=== PATIENT | female | born 1950 | race Caucasian/White ===

== ENCOUNTER 2019-02-15 08:54 | Inpatient (IN) | payer MEDICARE, MEDICAID ==
[2019-02-12 15:43] VITALS: BMI 33.5
[2019-02-15 10:18] LABS: #Basophils 0.1 thou/uL (0.0-0.2); #Eosinphils 0.2 thou/uL (0.0-0.7); #Lymphocytes 2.2 thou/uL (1.20-3.40); #Monocytes 0.5 thou/uL (0.11-0.59); #Neutrophils 3.5 thou/uL (1.40-6.50); %Basophils 0.8 % (0.0-1.0); %Eosinophils 3.3 % (0.0-10.0); %Lymphocytes 34.3 % (21.0-51.0); %Monocytes 7.9 % (0.0-10.0); %Neutrophils 53.8 % (42.0-75.0); Hemoglobin 12.8 g/dL (12.0-16.0); Mean Corpuscular HGB CONC 34.7 g/dL (32.0-36.0); Mean Corpuscular Hemoglobin 30.1 pg (27.0-31.0); Mean Corpuscular Volume 86.7 fL (78.0-98.0); Platelet Count 263 thou/uL (130-400); RBC Distribution Width 12.8 % (11.5-14.5); Red Blood Cell (RBC) Count 4.25 mill/uL (4.20-5.40); White Blood Cell (WBC) Count 6.4 thou/uL (4.8-10.8)
[2019-02-15 10:42] LABS: Anion Gap 14 mmol/L (10-20); BUN (Urea Nitrogen) 25 mg/dL (9.8-20.1); Calc. Creatinine Clearance 72 mL/min (70-130); Calcium 8.7 mg/dL (7.8-10.44); Carbon Dioxide 30 mmol/L (23-31); Chloride 100 mmol/L (98-107); Estimated GFR-MDRD 52; Glucose 207 mg/dL (80-115); Potassium 3.8 mmol/L (3.5-5.1); Sodium 140 mmol/L (136-145)
[2019-02-15] MEDS ORDERED: Sodium Chloride 0.9% 10 ML ONE (10:45)
[2019-02-15] MEDS ORDERED: Lidocaine 1% PF 5 ML VIAL ONE (12:46)
[2019-02-15] MEDS ORDERED: Rocuronium Bromide 10 MG/ML (10ML VIAL) ONE (12:46)
[2019-02-15] MEDS ORDERED: Dexamethasone 20 MG/5 ML VIAL ONE (12:46)
[2019-02-15] MEDS ORDERED: Ondansetron PF 4 MG/2 ML Vial ONE (12:46)
[2019-02-15] MEDS ORDERED: PROPOFOL 200 MG/20 ML VIAL ONE (12:46)
[2019-02-15] MEDS ORDERED: ePHEDrine 50 MG/ML VIAL ONE (12:46)
[2019-02-15] MEDS ORDERED: PHENYLEPHRINE-NS 100 MCG/ML 10 ML SYRINGE ONE (12:46)
[2019-02-15] MEDS ORDERED: Glycopyrrolate 0.2 MG/ML 5 ML SYRINGE ONE (12:46)
[2019-02-15] MEDS ORDERED: Fentanyl 100 MCG/2 ML VIAL ONE ×3 (13:16→15:45)
[2019-02-15] MEDS ORDERED: SUGAMMADEX SODIUM 200 MG/2 ML VIAL ONE ×2 (14:50→14:55)
[2019-02-15] MEDS ORDERED: HYDROmorphone 0.5 MG/0.5 ML SYRINGE ONE ×2 (15:50→16:08)
[2019-02-15] MEDS ORDERED: HYDROcodone/Acetaminophen 10/325 mg Tablet PO PRN (16:04)
[2019-02-15] MEDS ORDERED: Bisacodyl 10 MG SUPP PR PRN (16:04)
[2019-02-15] MEDS ORDERED: Promethazine HCl 12.5 MG SUPP PR PRN (16:04)
[2019-02-15] MEDS ORDERED: Milk Of Magnesia 30 ML UDCUP PO PRN (16:04)
[2019-02-15] MEDS ORDERED: tiZANidine HCl 4 MG TAB PO PRN (16:04)
[2019-02-15] MEDS ORDERED: Promethazine 25 MG TAB PO PRN (16:04)
[2019-02-15] MEDS ORDERED: Mag-Al 1200 mg/1200 mg/30 ML UDCUP PO PRN (16:04)
[2019-02-15] MEDS ORDERED: traMADol HCl 50 MG TAB PO PRN ×2 (16:04)
[2019-02-15] MEDS ORDERED: diphenhydrAMINE 50 MG/ML VIAL IVP PRN (16:04)
[2019-02-15] MEDS ORDERED: Ondansetron PF 4 MG/2 ML Vial IM PRN (16:06)
[2019-02-15] MEDS ORDERED: Meclizine HCl 25 MG TAB PO PRN (17:00)
[2019-02-15] MEDS ORDERED: busPIRone HCl 5 MG TAB PO PRN (17:02)
[2019-02-15] MEDS ORDERED: Morphine 2 MG/ML SYRINGE SLOW IVP PRN ×2 (19:03→19:16)
[2019-02-15] MEDS ORDERED: Insulin Regular 300 UNITS/3 ML VIAL SC SCH ×2 (19:15→19:45)
[2019-02-15] MEDS: Sodium Chloride 0.9% 1,000 ML IV SCH (19:35)
[2019-02-15] MEDS: metFORMIN 500 MG TAB PO SCH (20:21)
[2019-02-15] MEDS: Pregabalin 50 MG CAP PO SCH (20:22)
[2019-02-15] MEDS: Amlodipine 10 MG TAB PO SCH (20:23)
[2019-02-15] MEDS: HYDROcodone/Acetaminophen 10/325 mg Tablet PO PRN (20:24)
[2019-02-15] MEDS: Atorvastatin Calcium 40 MG TAB PO SCH (20:25)
[2019-02-15] MEDS: Insulin Glargine 33 UNITS in Pre-Filled Syringe 1 EACH SC SCH (20:27)
[2019-02-15] MEDS: DULoxetine 30 MG CAP PO SCH (20:27)
[2019-02-15] MEDS: diphenhydrAMINE 25 MG CAP PO PRN (20:33)
[2019-02-15] MEDS: CEFAZOLIN 2 GM in Premix Bag 1 BAG IVPB SCH (21:44)
[2019-02-15] MEDS: oxyCODONE/Acetaminophen 5 mg/325 mg Tablet PO PRN (23:51)
[2019-02-16] MEDS: Sodium Chloride 0.9% 1,000 ML IV SCH ×2 (05:25→19:27)
[2019-02-16] MEDS: HYDROcodone/Acetaminophen 10/325 mg Tablet PO PRN ×2 (05:25→11:46)
[2019-02-16] MEDS: CEFAZOLIN 2 GM in Premix Bag 1 BAG IVPB SCH (05:26)
--- NOTE | 2019-02-16 06:18 | PRG ---
DATE OF SERVICE: 02/16/2019 The patient is a 68-year-old female, who was seen by us for progressive back and leg pain and found to have L4-L5 degenerative changes and spondylolisthesis and underwent L4-L5 decompression and fusion on 02/15/2019. Following the surgery, she was transitioned to the Med/Surg floor, where her pain has been well-controlled with p.o. medications, she has been tolerating a regular diet. She has had some increased urinary retention, but has not tried to get up out of the bed to use the bathroom. She also had a JEREMY drain placed and its output has been trending down with only 35 mL out. NAD, VSS FAROM all extremities. No focal motor weakness Incision C/D/I We will get her up on a bedside commode rather than a bed pina, but if still unable to urinate and scans greater than 350, she may require I and O cath. We will plan to remove the JEREMY drain today. Otherwise, we will continue to work on pain control and mobilizing appropriately. I anticipate home in the next few days. Job ID: [id number] [facility]
[2019-02-16] MEDS: oxyCODONE/Acetaminophen 5 mg/325 mg Tablet PO PRN ×2 (06:26→20:12)
[2019-02-16] MEDS: Insulin Regular 300 UNITS/3 ML VIAL SC SCH ×3 (06:28→16:37)
[2019-02-16] MEDS ORDERED: BIOTENE MOUTH SPRAY 44.3 ML MM PRN (06:50)
--- NOTE | 2019-02-16 08:05 | OP ---
DATE OF PROCEDURE: 02/15/2019 CHIP DRIER: Eduardo Weir PA-C. PROCEDURES PERFORMED: Lumbar laminectomy L4-L5, posterolateral arthrodesis, pedicle screw instrumentation, demineralized bone matrix, and local morselized autograft L4-L5. DESCRIPTION OF PROCEDURE: The patient was brought to the operating room and intubated. She was rolled in a prone position on gel-filled chest rolls. The previous incision was reopened and extended, and the L4-L5 levels were exposed. As anticipated, there was evidence of an interlaminar laminectomy at L4-L5. We performed complete L5 and inferior L4 laminectomies, completely decompressed the neural elements. There was extensive scar in the region of the prior laminotomy as well as synovial cyst debris, all of which was debrided. A complete decompression was achieved. Next, pedicle screws were placed on the right at L4 and L5 using lateral fluoroscopic guidance. The aaliyah was secured between the screws, connected by nuts, which were final tightened. The wound was then extensively irrigated. MAC hemostasis was secured. A combination of demineralized bone matrix, local morselized autograft was laid over the lamina and posterolateral surfaces for the purpose of arthrodesis. Vancomycin powder was applied, and the wound was then closed in anatomic layers over drain. Job ID: [id number]
[2019-02-16] MEDS: Cephalexin 250 MG CAP PO SCH ×4 (08:10→19:49)
[2019-02-16] MEDS: diphenhydrAMINE 25 MG CAP PO PRN ×2 (08:11→16:35)
[2019-02-16] MEDS: DULoxetine 30 MG CAP PO SCH ×2 (08:11→19:46)
[2019-02-16] MEDS: Hydrochlorothiazide 25 MG TAB PO SCH ×2 (08:11→08:12)
[2019-02-16] MEDS: metFORMIN 500 MG TAB PO SCH ×2 (08:12→19:47)
[2019-02-16] MEDS: Pregabalin 50 MG CAP PO SCH ×3 (08:12→20:13)
[2019-02-16] MEDS: Fluticasone Propionate Nasal Spray 16 gm Bottle NASAL SCH (08:18)
[2019-02-16] MEDS: Loratadine 10 MG TAB PO SCH (08:19)
[2019-02-16] MEDS ORDERED: FLU VACC TS2019-20(65YR UP)/PF 180 MCG/0.5 ML SYRINGE IM ONE (09:00)
[2019-02-16] MEDS ORDERED: Prevnar 13-Val Conj/PF 0.5 ML SYRINGE IM ONE (09:00)
[2019-02-16] MEDS ORDERED: Dextrose 50% Abboject 50 ML SYRINGE SLOW IVP PRN (18:35)
[2019-02-16] MEDS ORDERED: Dextrose 5% in Water 1,000 ML IV PRN (18:35)
[2019-02-16] MEDS: Amlodipine 10 MG TAB PO SCH (19:46)
[2019-02-16] MEDS: Insulin Glargine 33 UNITS in Pre-Filled Syringe 1 EACH SC SCH (19:49)
[2019-02-16] MEDS: Atorvastatin Calcium 40 MG TAB PO SCH (19:49)
[2019-02-16] MEDS: HumaLOG 300 UNITS/3 ML VIAL SC PRN (19:53)
--- NOTE | 2019-02-17 03:16 | CON ---
DATE OF CONSULTATION: HISTORY OF PRESENT ILLNESS: We were consulted by Dr. Ribeiro after the patient underwent a lumbar laminectomy, L4-L5, posterolateral arthrodesis, pedicle screw instrumentation, demineralized bone matrix, local morselized autograft, L4-L5. The patient reports this is her 2nd laminectomy in the same location. REVIEW OF SYSTEMS: The patient reports postoperative pain, lumbar. Denies chest pain, shortness of breath. All other systems are reviewed and are negative unless mentioned in the HPI. PAST MEDICAL HISTORY: Pertinent for hypertension, hyperlipidemia, anxiety, diabetes type 2, vertigo, chronic back pain, neuropathy. PAST SURGICAL HISTORY: Previous laminectomy, L4-L5, bilateral total knee replacement, partial hysterectomy, left femur fixed after fracture, tonsillectomy. KNOWN ALLERGIES: None. HOME MEDICATIONS: 1. Norvasc 10 mg p.o. q.p.m. 2. Atorvastatin 80 mg p.o. q.p.m. 3. BuSpar 5 mg p.o. b.i.d. p.r.n. 4. Duloxetine 30 mg p.o. b.i.d. 5. Flonase 2 sprays each naris daily. 6. Humulin R 15 units subcu before meals. 7. Hydrochlorothiazide 25 mg p.o. daily. 8. Levemir 50 units subcu q.p.m. 9. Claritin 10 mg p.o. q.a.m. 10. Antivert 25 mg p.o. daily. 11. Mobic 7.5 mg p.o. b.i.d. 12. Metformin 1000 mg p.o. b.i.d. 13. Oxycodone, Tylenol 1 each p.o. q.6 hours as needed. 14. Protonix 40 mg p.o. daily. 15. Lyrica 200 mg p.o. t.i.d. PHYSICAL EXAMINATION: VITAL SIGNS: Temperature is 97.7, pulse is 60, respirations 16, pO2 saturations are 95% on room air, blood pressure is 133/64. CONSTITUTIONAL: The patient is alert and oriented to person, place, and time. Nontoxic appearing. HEENT: Head is atraumatic and normocephalic. Eyes, eyelids are normal to inspection. Pupils are equally round and reactive to light. ENT, mouth exam is normal. The patient has recently had all of her teeth pulled. Mucous membranes are moist. NECK: Supple. Trachea is midline. RESPIRATORY/CHEST: Breath sounds are clear. Chest expansion is equal. CARDIOVASCULAR: Regular heart rate and rhythm. Heart sounds are normal. ABDOMEN: Female, mild distention, nontender. Bowel sounds are heard. BACK: Normal range of motion. There is a dressing to the lumbar, it is dry and intact. No CVA tenderness. EXTREMITIES: Upper extremities, normal inspection. Motor strength is normal. Sensation is intact. Lower extremities, normal inspection, normal range of motion, sensation is intact. NEURO: The patient is oriented to person, place, and time. Speech is normal. SKIN: Warm, dry, normal in color. PSYCH: Has a normal affect. ASSESSMENT AND PLAN: 1. The patient is currently recovering from a postoperative laminectomy for L4-L5, is undergoing physical therapy and has pain management, is being managed by Dr. Ribeiro. 2. History of diabetes mellitus, before meals and at bedtime Accu-Cheks. Restart the patient's home insulin doses. Add sliding scale as needed for coverage. 3. History of hypertension. We will restart home medications, we will trend. Add p.r.n. medications as indicated. 4. History of anxiety. We will restart home medications. We appreciate the consultation. We will follow the patient with you. Job ID: [id number]
[2019-02-17] MEDS: HYDROcodone/Acetaminophen 10/325 mg Tablet PO PRN ×2 (04:19→09:47)
[2019-02-17] MEDS: Insulin Regular 300 UNITS/3 ML VIAL SC SCH ×3 (06:33→16:49)
[2019-02-17] MEDS: HumaLOG 300 UNITS/3 ML VIAL SC PRN ×3 (06:34→21:32)
--- NOTE | 2019-02-17 07:09 | PRG ---
DATE OF SERVICE: SUBJECTIVE: Patient is postoperative day #2, status post L4-L5 decompression and fusion. Her JEREMY was removed on postoperative day #1. She initially had some urinary retention, but this has since resolved. She is mobilizing better with the assistance of a walker. She is getting up and walking short distances back and forth to the bathroom. OBJECTIVE: On exam this morning, she is awake, alert, in no acute distress. She has free active range of motion of all extremities. No focal motor weakness. Incision is clean, dry, and intact. Patient reports that she will have assistance and able to get her house ready to go home by tomorrow. Will continue to mobilize inpatient until that time. Anticipate discharge home in the morning. Job ID: [id number]
[2019-02-17] MEDS ORDERED: Insulin Glargine 10 UNITS in Pre-Filled Syringe 1 EACH SC SCH (09:00)
[2019-02-17] MEDS: Sodium Chloride 0.9% 1,000 ML IV SCH ×2 (09:02→21:40)
[2019-02-17] MEDS: DULoxetine 30 MG CAP PO SCH ×2 (09:02→20:07)
[2019-02-17] MEDS: Cephalexin 250 MG CAP PO SCH ×4 (09:03→20:06)
[2019-02-17] MEDS: Pregabalin 50 MG CAP PO SCH ×3 (09:03→20:07)
[2019-02-17] MEDS: metFORMIN 500 MG TAB PO SCH ×2 (09:04→20:07)
[2019-02-17] MEDS: Loratadine 10 MG TAB PO SCH (09:05)
[2019-02-17] MEDS: diphenhydrAMINE 25 MG CAP PO PRN (09:47)
[2019-02-17] MEDS: Fluticasone Propionate Nasal Spray 16 gm Bottle NASAL SCH (09:50)
--- NOTE | 2019-02-17 13:09 | PDOC.HOSPP ---
- Subjective Encounter Date: 02/17/19 Encounter Time: 08:00 Subjective: Pt seen for followup re; DM2. Denies chest pain, shortness of breath, fevers or chills.. - Objective Vital Signs & Weight: Vital Signs (12 hours) Temp Pulse Resp BP BP Pulse Ox 02/17/19 11:12 99.2 F 95 20 114/55 L 95 02/17/19 07:24 98.5 F 64 22 H 123/58 L 92 L 02/17/19 04:03 97.8 F 78 16 129/60 93 L Weight Weight 195 lb I&O: 02/16/19 02/17/19 02/18/19 06:59 06:59 06:59 Intake Total 600 3220 Output Total 765 35 Balance -165 3185 Result Diagrams: 02/15/19 10:09 02/15/19 10:09 Additional Labs: Accuchecks 02/17/19 02/17/19 02/16/19 11:12 05:00 19:50 POC Glucose 217 H 315 H 363 H 02/16/19 02/16/19 18:34 11:42 POC Glucose 323 H 382 H Labs and MARs reviewed by id Hospitalist ROS - Review of Systems Cardiovascular: denies: chest pain, palpitations, orthopnea, paroxysmal noc. dyspnea, edema, light headedness Gastrointestinal: denies: nausea, vomiting, abdominal pain, diarrhea, constipation, melena, hematochezia - Medication Medications: Active Medications Generic Name Dose Route Start Last Admin Trade Name Freq PRN Reason Stop Dose Admin Hydrocodone Bitart/Acetaminophen 2 tab 02/15/19 16:04 02/17/19 09:47 [place] 10/325 PO 2 tab Q4H PRN Administration PAIN (4-6) Al Hydroxide/Mg Hydroxide 30 ml 02/15/19 16:04 02/16/19 19:45 Maalox PO 30 ml Q4H PRN Administration Heartburn or Indigestion Amlodipine Besylate 10 mg 02/15/19 21:00 02/16/19 19:46 Norvasc PO 10 mg QPM FRAN Administration Atorvastatin Calcium 80 mg 02/15/19 21:00 02/16/19 19:49 Lipitor PO 80 mg QPM FRAN Administration Cephalexin 500 mg 02/16/19 09:00 02/17/19 12:15 Keflex PO 02/26/19 09:01 500 mg QID FRAN Administration Diphenhydramine HCl 25 mg 02/15/19 16:04 02/17/19 09:47 Benadryl PO 25 mg Q6H PRN Administration Itching Duloxetine HCl 30 mg 02/15/19 21:00 02/17/19 09:02 Cymbalta PO 30 mg BID FRAN Administration Fluticasone Propionate 0 gm 02/16/19 09:00 02/17/19 09:50 Flonase Nasal [place] NASAL 2 spr DAILY FRAN Administration Hydrochlorothiazide 25 mg 02/16/19 09:00 02/16/19 08:12 Hydrochlorothiazide PO 25 mg DAILY FRAN Administration Sodium Chloride 1,000 mls @ 75 mls/hr 02/15/19 16:04 02/17/19 09:02 Normal Saline 0.9% IV Not Given .[id number] FRAN Insulin Human Lispro 0 units 02/16/19 18:35 02/17/19 06:34 Humalog SC 8 unit .MODERATE SLIDING SC PRN Administration Moderate Correctional Scale Insulin Human Lispro 0 units 02/16/19 18:35 02/16/19 19:53 Humalog SC 5 unit .BEDTIME SLIDING SC PRN Administration Bedtime Correctional Scale Insulin Human Regular 15 units 02/16/19 07:30 02/17/19 11:15 Humulin R SC 15 unit AC FRAN Administration Loratadine 10 mg 02/16/19 09:00 02/17/19 09:05 Claritin PO 10 mg QAM FRAN Administration Metformin HCl 1,000 mg 02/15/19 21:00 02/17/19 09:04 Glucophage PO 1,000 mg BID FRAN Administration Miscellaneous Medication 0 ml 02/16/19 06:50 02/16/19 08:20 Biotene Moisturizing Mouth MM 1 spr Q2H PRN Administration DRY MOUTH Morphine Sulfate 2 mg 02/15/19 19:16 02/15/19 19:28 Morphine SLOW IVP 2 mg Q1H PRN Administration Moderate Breakthrough Pain Oxycodone/Acetaminophen 1 tab 02/15/19 17:00 02/16/19 20:12 Percocet 5/325 PO 1 tab Q6H PRN Administration Pain Pantoprazole Sodium 40 mg 02/16/19 09:00 02/17/19 09:05 Protonix PO 40 mg DAILY FRAN Administration Pregabalin 200 mg 02/15/19 21:00 02/17/19 09:03 Lyrica PO 200 mg TID FRAN Administration Tizanidine HCl 4 mg 02/15/19 16:04 02/15/19 20:26 Zanaflex PO 4 mg Q6H PRN Administration MUSCLE SPASM - Exam General - other findings: Obese ENT: normocephalic atraumatic, no oropharyngeal lesions Neck: supple, no JVD Heart: RRR, no rubs Respiratory: CTAB Gastrointestinal: soft, non-tender Neurological: no weakness Psychiatric: normal affect, normal behavior Hosp A/P (1) DM2 (diabetes mellitus, type 2) Status: Chronic (2) HTN (hypertension) Code(s): I10 - ESSENTIAL (PRIMARY) HYPERTENSION Status: Chronic (3) Dyslipidemia Code(s): E78.5 - HYPERLIPIDEMIA, UNSPECIFIED Status: Chronic - Plan Blood sugars high. Increase lantus to 50 units PM, continue moderate sliding scale. HTN controlled. Continue atorvastatin.
--- NOTE | 2019-02-17 15:03 | PRG ---
DATE OF SERVICE: 02/17/2019 The patient continues to do well. Back pain has been an issue, but she seemed to mobilize more effectively. Anticipate discharge within the next 1 to 2 days. Job ID: [id number]
[2019-02-17] MEDS: Amlodipine 10 MG TAB PO SCH (20:06)
[2019-02-17] MEDS: Atorvastatin Calcium 40 MG TAB PO SCH (20:06)
[2019-02-17] MEDS ORDERED: Insulin Glargine 50 UNITS in Pre-Filled Syringe 1 EACH SC SCH (21:00)
[2019-02-17] MEDS: oxyCODONE/Acetaminophen 5 mg/325 mg Tablet PO PRN (21:32)
[2019-02-18] MEDS: HumaLOG 300 UNITS/3 ML VIAL SC PRN ×2 (06:25→12:28)
[2019-02-18] MEDS: Insulin Regular 300 UNITS/3 ML VIAL SC SCH ×3 (06:25→17:56)
[2019-02-18] MEDS ORDERED: Hydrochlorothiazide 25 MG TAB PO SCH (09:00)
[2019-02-18] MEDS: DULoxetine 30 MG CAP PO SCH (09:46)
[2019-02-18] MEDS: Cephalexin 250 MG CAP PO SCH ×3 (09:46→17:56)
[2019-02-18] MEDS: Pregabalin 50 MG CAP PO SCH ×2 (09:47→15:04)
[2019-02-18] MEDS: Fluticasone Propionate Nasal Spray 16 gm Bottle NASAL SCH (09:47)
[2019-02-18] MEDS: metFORMIN 500 MG TAB PO SCH (09:47)
[2019-02-18] MEDS: Loratadine 10 MG TAB PO SCH (09:49)
--- NOTE | 2019-02-18 09:49 | DIS ---
DATE OF ADMISSION: 02/15/2019 DATE OF DISCHARGE: 02/18/2019 HISTORY OF PRESENT ILLNESS: The patient is a 68-year-old female recently evaluated in our office for lumbar stenosis with neurogenic claudication, who underwent L4-L5 decompression and fusion on 02/15/2019. Following the surgery, she was transitioned to the Med/Surg floor. She did have JEREMY drain placed intraoperatively and this output trended downward and was removed on postoperative day #1. The patient's pain was well controlled with p.o. medication and this has improved during her admission course. She was tolerating a regular diet. Initially, she developed some urinary retention, but this also resolved on postoperative day #2 only requiring 1 p.r.n. straight cath. She has been working with physical therapy and is walking slowly, but steadily in the halls with her walker. The patient was dismissed to home on 02/18/2019. I will arrange home health PT and OT. I discussed home care and precautions. The patient's pain management doctor is managing her pain medications. I will follow up in 2 weeks with x-rays for recheck. Job ID: [id number]
[2019-02-18] MEDS: HYDROcodone/Acetaminophen 10/325 mg Tablet PO PRN (10:56)
[2019-02-18] MEDS: Sodium Chloride 0.9% 1,000 ML IV SCH (12:11)
[2019-02-18 15:28] VITALS: BP 123/57; TEMP 98.2
--- NOTE | 2019-02-18 22:54 | EKG ---
Test Reason : PREOP Blood Pressure : / mmHG Vent. Rate : 066 BPM Atrial Rate : 066 BPM P-R Int : 256 ms QRS Dur : 122 ms QT Int : 456 ms P-R-T Axes : 018 -53 134 degrees QTc Int : 478 ms Sinus rhythm with 1st degree A-V block Left anterior fascicular block Left ventricular hypertrophy with QRS widening and repolarization abnormality Abnormal ECG No previous ECGs available Confirmed by Gordon NOLAN ([id number]) on 02/18/2019 10:54:08 PM Referred By: DWAIN Confirmed By:Gordon NOLAN
== END 2019-02-18 19:10 | disposition home or self-care (01) | DRG 460 ==
LOC: SURG A 08:54 → SURG B 16:21
PROVIDERS: ADMIT Neurological Surgery; ATTEND Neurological Surgery
PROC: 0SG0071 Fusion of Lumbar Vertebral Joint with Autologous Tissue Substitute, Posterior Approach, Posterior Column, Open Approach (ICD-10-PCS; principal; 2019-02-15)
DX: M48.062 Spinal stenosis, lumbar region with neurogenic claudication (principal); J44.9 Chronic obstructive pulmonary disease, unspecified; E11.9 Type 2 diabetes mellitus without complications; I10 Essential (primary) hypertension; E78.5 Hyperlipidemia, unspecified; F41.9 Anxiety disorder, unspecified; G89.29 Other chronic pain; Z96.653 Presence of artificial knee joint, bilateral; Z90.89 Acquired absence of other organs; Z79.84 Long term (current) use of oral hypoglycemic drugs; Z79.899 Other long term (current) drug therapy
CPT/HCPCS: 36415; 36416; 76000; 80048; 85025; 90471; 90662; 90670; 93005; 93010; C1713; C1768; G0008; G0009; J0131; J0690; J1100; J1170; J1815; J2001; J2270; J2405; J2704; J3010; J3370; J3490; Q0163

== ENCOUNTER 2020-08-16 14:36 | Outpatient (CLI) | payer MEDICARE, MEDICAID ==
[2020-08-16 15:43] LABS: Mean Corpuscular HGB CONC 32.6 g/dL (32.0-36.0); Mean Corpuscular Volume 88.9 fl (81.6-98.3); Mean Platelet Volume 9.8 fl (7.4-10.4); Platelet Count 319 10x3/uL (150-450); RBC Distribution Width 14.2 % (11.5-14.5); Red Blood Cell (RBC) Count 4.49 10x6/uL (3.90-5.03); White Blood Cell (WBC) Count 6.9 10x3/uL (3.5-10.5)
[2020-08-16 16:27] LABS: Anion Gap 17 mmol/L (10-20); BUN (Urea Nitrogen) 21 mg/dL (9.8-20.1); Calc. Creatinine Clearance 0 mL/min (70-130); Calcium 9.4 mg/dL (7.8-10.44); Carbon Dioxide 27 mmol/L (23-31); Chloride 101 mmol/L (98-107); Glucose 108 mg/dL (80-115); Potassium 4.7 mmol/L (3.5-5.1); Sodium 140 mmol/L (136-145)
[2020-08-17 02:23] LABS: SARS-CoV-2 PCR by NAA Not Detected (NotDetected)
== END 2020-08-16 14:37 | disposition home or self-care (01) ==
LOC: LABBT 14:36
PROVIDERS: ATTEND Neurological Surgery
DX: Z01.818 Encounter for other preprocedural examination (principal); Z20.822 Contact with and (suspected) exposure to COVID-19; M43.16 Spondylolisthesis, lumbar region
CPT/HCPCS: 80048; 85027; 93005; U0003; U0005; 87635; 93010

== ENCOUNTER 2020-08-21 05:37 | Inpatient (IN) | payer MEDICARE, MEDICAID ==
[2020-08-21] MEDS ORDERED: Insulin Regular 300 UNITS/3 ML VIAL ONE (07:14)
[2020-08-21] MEDS ORDERED: Midazolam HCl 2 mg/2 ml Vial ONE (09:11)
[2020-08-21] MEDS ORDERED: Fentanyl 100 MCG/2 ML VIAL ONE ×2 (09:11→12:13)
[2020-08-21] MEDS ORDERED: Norepinephrine 4 MG/4 ML VIAL ONE (09:12)
[2020-08-21] MEDS ORDERED: Rocuronium Bromide 10 MG/ML (10ML VIAL) ONE (09:53)
[2020-08-21] MEDS ORDERED: PROPOFOL 200 MG/20 ML VIAL ONE (09:53)
[2020-08-21] MEDS ORDERED: Metoclopramide HCl 10 MG/2 ML VIAL ONE (09:53)
[2020-08-21] MEDS ORDERED: Lidocaine 1% PF 5 ML VIAL ONE (09:53)
[2020-08-21] MEDS ORDERED: Ondansetron PF 4 MG/2 ML Vial ONE (09:53)
[2020-08-21] MEDS ORDERED: SUGAMMADEX SODIUM 200 MG/2 ML VIAL ONE ×2 (10:41→11:08)
[2020-08-21] MEDS ORDERED: Promethazine HCl 25 MG/ML VIAL SLOW IVP PRN (11:24)
[2020-08-21] MEDS ORDERED: hydrALAZINE 20 MG/ML VIAL SLOW IVP PRN (11:24)
[2020-08-21] MEDS ORDERED: Ondansetron HCl/PF 4 MG/2 ML Vial IVP PRN (11:24)
[2020-08-21] MEDS ORDERED: HYDROcodone/Acetaminophen 10/325 mg Tablet ONE ×3 (16:13→20:26)
[2020-08-21] MEDS ORDERED: tiZANidine HCl 4 MG TAB ONE (19:04)
[2020-08-21] MEDS ORDERED: tiZANidine HCl 4 MG TAB PO PRN (20:45)
[2020-08-21] MEDS ORDERED: Ondansetron PF 4 MG/2 ML Vial SLOW IVP PRN (20:57)
[2020-08-21] MEDS ORDERED: Promethazine 25 MG TAB PO PRN (21:00)
[2020-08-21] MEDS ORDERED: Promethazine HCl 25 MG/ML VIAL IM PRN (21:00)
[2020-08-21] MEDS ORDERED: Promethazine HCl 12.5 MG SUPP PR PRN (21:00)
[2020-08-21] MEDS ORDERED: Milk Of Magnesia 30 ML UDCUP PO PRN (21:00)
[2020-08-21] MEDS ORDERED: Mag-Al 1200 mg/1200 mg/30 ML UDCUP PO PRN (21:00)
[2020-08-21] MEDS ORDERED: traMADol HCl 50 MG TAB PO PRN ×2 (21:00)
[2020-08-21] MEDS ORDERED: diphenhydrAMINE 50 MG/ML VIAL IVP PRN (21:00)
[2020-08-21] MEDS ORDERED: diphenhydrAMINE 25 MG CAP PO PRN (21:00)
[2020-08-21] MEDS ORDERED: CEFAZOLIN 2 GM in Premix Bag 1 BAG IVPB SCH (22:00)
[2020-08-21 22:22] VITALS: BMI 36.1
[2020-08-21] MEDS ORDERED: Insulin Regular 300 UNITS/3 ML VIAL SC SCH (22:30)
[2020-08-21] MEDS: Sodium Chloride 0.9% 1,000 ML IV SCH (23:56)
[2020-08-22] MEDS ORDERED: CEFAZOLIN 2 GM in Premix Bag 1 BAG IVPB SCH (02:00)
[2020-08-22] MEDS: Morphine 4 MG/ML VIAL SLOW IVP PRN ×3 (02:20→16:02)
[2020-08-22] MEDS: HumaLOG 300 UNITS/3 ML VIAL SC PRN ×4 (06:54→20:34)
[2020-08-22] MEDS ORDERED: Dextrose 50% Abboject 50 ML SYRINGE IVP PRN (07:00)
[2020-08-22] MEDS ORDERED: Dextrose 5% in Water 1,000 ML IV PRN ×2 (07:00→18:52)
[2020-08-22] MEDS: Meloxicam 7.5 MG TAB PO SCH ×2 (08:03→21:26)
[2020-08-22] MEDS: Amlodipine 10 MG TAB PO SCH (08:04)
[2020-08-22] MEDS: Oxybutynin ER 5 MG TAB PO SCH (08:04)
[2020-08-22] MEDS: Lisinopril 10 MG TAB PO SCH (08:04)
[2020-08-22] MEDS: metFORMIN 500 MG TAB PO SCH ×2 (08:05→16:04)
[2020-08-22] MEDS: Fluticasone Propionate Nasal Spray 16 gm Bottle NASAL SCH (08:05)
[2020-08-22] MEDS: Furosemide 20 MG TAB PO SCH (08:05)
[2020-08-22] MEDS: Magnesium Oxide 400 MG TAB PO SCH ×2 (08:07→21:26)
[2020-08-22] MEDS: Cholecalciferol 1,000 UNITS (25 MCG) TAB PO SCH (08:09)
[2020-08-22] MEDS: Loratadine 10 MG TAB PO SCH (08:11)
[2020-08-22] MEDS ORDERED: busPIRone HCl 10 MG TAB PO SCH (09:00)
[2020-08-22] MEDS ORDERED: Pregabalin 50 MG CAP PO SCH (09:00)
[2020-08-22] MEDS ORDERED: DULoxetine 60 MG CAP PO SCH (09:00)
[2020-08-22] MEDS: Lantus 1000 UNITS/10 ML VIAL SC SCH ×2 (09:05→21:26)
[2020-08-22] MEDS: Sodium Chloride 0.9% 1,000 ML IV SCH ×2 (09:08→23:48)
[2020-08-22] MEDS: Morphine 2 MG/ML VIAL SLOW IVP PRN ×2 (11:02→17:24)
[2020-08-22] MEDS ORDERED: Lorazepam 2 MG/ML VIAL SLOW IVP PRN (18:07)
[2020-08-22 19:50] LABS: #Basophils 0.1 thou/uL (0.0-0.2); #Lymphocytes 1.9 thou/uL (1.20-3.40); #Monocytes 0.6 thou/uL (0.11-0.59); #Neutrophils 4.4 thou/uL (1.40-6.50); %Basophils 0.8 % (0.0-1.0); %Eosinophils 0.7 % (0.0-10.0); %Lymphocytes 27.3 % (21.0-51.0); %Monocytes 8.9 % (0.0-10.0); %Neutrophils 62.4 % (42.0-75.0); Hemoglobin 11.4 g/dL (12.0-16.0); Mean Corpuscular HGB CONC 33.5 g/dL (32.0-36.0); Mean Corpuscular Hemoglobin 30.1 pg (27.0-31.0); Mean Corpuscular Volume 89.8 fL (78.0-98.0); Mean Platelet Volume 7.6 fL (7.4-10.4); Platelet Count 226 thou/uL (130-400); RBC Distribution Width 13.5 % (11.5-14.5); Red Blood Cell (RBC) Count 3.79 mill/uL (4.20-5.40)
[2020-08-22 20:17] LABS: ALT (SGPT) Less than 7 U/L (8-55); AST (SGOT) 15 U/L (5-34); Albumin 3.6 g/dL (3.4-4.8); Alkaline Phosphatase 77 U/L (40-110); Anion Gap 11 mmol/L (10-20); BUN (Urea Nitrogen) 16 mg/dL (9.8-20.1); Bilirubin, Total 0.7 mg/dL (0.2-1.2); Calc. Creatinine Clearance 97 mL/min (70-130); Calcium 8.6 mg/dL (7.8-10.44); Carbon Dioxide 33 mmol/L (23-31); Chloride 100 mmol/L (98-107); Globulin 2.8 g/dL (2.4-3.5); Glucose 246 mg/dL (80-115); Potassium 4.2 mmol/L (3.5-5.1); Protein, Total 6.4 g/dL (5.8-8.1); Sodium 140 mmol/L (136-145)
[2020-08-22] MEDS: Atorvastatin Calcium 40 MG TAB PO SCH (21:25)
[2020-08-22] MEDS ORDERED: OLANZapine 10 MG VIAL IM SCH (22:00)
[2020-08-22] MEDS ORDERED: Sterile Water 10 ML VIAL FS PRN (22:00)
[2020-08-23] MEDS ORDERED: Pharmacy to Dose - ANTIBIOTICS IVPB PRN (04:54)
[2020-08-23] MEDS ORDERED: Furosemide 40 MG/4 ML VIAL SLOW IVP SCH (05:00)
[2020-08-23 05:23] LABS: Actual Bicarbonate (HCO3a) 29.1 mEq/L (22-28); Base Excess (BEa) 3.8 mEq/L (-2.0 to +3.0); CO2 Tension 46.8 mmHg (35.0-45.0); Calcium, Ionized (arterial) 1.11 mmol/L (1.12-1.30); Carboxyhemoglobin (COHb) 0.9 gm% (0.0-3.0); O2 Tension (PaO2), arterial 67.8 mmHg (> 80.0); Potassium - ABG Lab 3.78 mmol/L (3.70-5.30); pH, Arterial 7.41 (7.35-7.45)
[2020-08-23 05:25] LABS: Puncture Site RRA
[2020-08-23 05:44] LABS: #Lymphocytes 1.5 thou/uL (1.20-3.40); #Monocytes 0.7 thou/uL (0.11-0.59); #Neutrophils 5.5 thou/uL (1.40-6.50); %Eosinophils 0.5 % (0.0-10.0); %Lymphocytes 19.2 % (21.0-51.0); %Monocytes 8.8 % (0.0-10.0); %Neutrophils 71.5 % (42.0-75.0); Hemoglobin 11.9 g/dL (12.0-16.0); Mean Corpuscular Hemoglobin 29.7 pg (27.0-31.0); Mean Corpuscular Volume 90.1 fL (78.0-98.0); Mean Platelet Volume 7.7 fL (7.4-10.4); Platelet Count 209 thou/uL (130-400); RBC Distribution Width 13.4 % (11.5-14.5); Red Blood Cell (RBC) Count 4.01 mill/uL (4.20-5.40); White Blood Cell (WBC) Count 7.7 thou/uL (4.8-10.8)
[2020-08-23] MEDS: Piperacillin/Tazobactam 3.375 GM in Sodium Chloride 0.9% 100 ML IVPB SCH ×3 (05:48→17:15)
[2020-08-23 05:59] LABS: Anion Gap 15 mmol/L (10-20); BUN (Urea Nitrogen) 13 mg/dL (9.8-20.1); Calc. Creatinine Clearance 105 mL/min (70-130); Calcium 8.6 mg/dL (7.8-10.44); Carbon Dioxide 30 mmol/L (23-31); Chloride 98 mmol/L (98-107); Glucose 267 mg/dL (80-115); Potassium 4.3 mmol/L (3.5-5.1); Sodium 139 mmol/L (136-145)
[2020-08-23 06:05] LABS: Troponin I 0.025 ng/mL (< 0.028)
[2020-08-23 06:25] LABS: Bacteria/HPF None Seen HPF (None Seen); Bilirubin Negative (Negative); Blood, Urine Trace (Negative); Clarity Clear (Clear); Glucose, Urine (Dipstick) Greater than 1000 mg/dL (Negative); Ketone, Urine 60 mg/dL (Negative); Leukocyte Negative Leu/uL (Negative); Nitrite Negative (Negative); Protein, Urine (Dipstick) 70 mg/dL (Neg-Trace); RBC/HPF None Seen HPF (0-3); Specific Gravity, Urine 1.013 (1.002-1.036); Squamous Epithelial 0-3 HPF (0-3); Urobilinogen Normal mg/dL (Less than 2); WBC/HPF 0-3 HPF (0-3); pH, Urine 7.5 (5.0-9.0)
[2020-08-23] MEDS: Vancomycin 1 GM in Premix Bag 1 BAG IVPB SCH ×2 (06:33→17:15)
[2020-08-23] MEDS: HumaLOG 300 UNITS/3 ML VIAL SC PRN ×3 (06:33→15:44)
[2020-08-23] MEDS: metFORMIN 500 MG TAB PO SCH (08:03)
[2020-08-23] MEDS: Furosemide 20 MG TAB PO SCH (08:04)
[2020-08-23] MEDS: Magnesium Oxide 400 MG TAB PO SCH ×2 (08:04→20:05)
[2020-08-23] MEDS: Cholecalciferol 1,000 UNITS (25 MCG) TAB PO SCH (08:04)
[2020-08-23] MEDS: Amlodipine 10 MG TAB PO SCH (08:04)
[2020-08-23] MEDS: Meloxicam 7.5 MG TAB PO SCH ×2 (08:04→20:06)
[2020-08-23] MEDS: Fluticasone Propionate Nasal Spray 16 gm Bottle NASAL SCH (08:04)
[2020-08-23] MEDS: Lisinopril 10 MG TAB PO SCH (08:04)
[2020-08-23] MEDS: Oxybutynin ER 5 MG TAB PO SCH (08:05)
[2020-08-23] MEDS: Loratadine 10 MG TAB PO SCH (08:05)
[2020-08-23] MEDS ORDERED: Lorazepam 2 MG/ML VIAL SLOW IVP PRN ×2 (08:09→15:12)
[2020-08-23] MEDS ORDERED: Labetalol HCl 100 MG/20 ML VIAL SLOW IVP PRN ×2 (08:10→08:15)
[2020-08-23] MEDS: Lantus 1000 UNITS/10 ML VIAL SC SCH ×2 (08:49→20:05)
[2020-08-23] MEDS ORDERED: Iopamidol 370 76% 100 ML VIAL ONE (12:53)
[2020-08-23 13:31] LABS: SARS-CoV-2 PCR by NAA Not Detected (NotDetected)
[2020-08-23] MEDS ORDERED: Sodium Chloride 0.9% 1,000 ML IV SCH (15:15)
[2020-08-23] MEDS ORDERED: Lorazepam 2 MG/ML VIAL SLOW IVP SCH (15:15)
[2020-08-23 17:34] LABS: Actual Bicarbonate (HCO3a) 32.2 mEq/L (22-28); Base Excess (BEa) 7.7 mEq/L (-2.0 to +3.0); CO2 Tension 44.7 mmHg (35.0-45.0); Carboxyhemoglobin (COHb) 1.4 gm% (0.0-3.0); Hemoglobin (Hb) 13.7 g/dL (12.0-16.0); O2 Tension (PaO2), arterial 68.3 mmHg (> 80.0); Potassium - ABG Lab 2.94 mmol/L (3.70-5.30); pH, Arterial 7.48 (7.35-7.45)
[2020-08-23 17:35] LABS: ALV-art Gradient 103.985 mmHg (0-20); Puncture Site RRA
[2020-08-23] MEDS: Sodium Chloride 0.9% 1,000 ML IV SCH (19:38)
[2020-08-23] MEDS: Enalaprilat Dihydrate 1.25 MG/ML VIAL SLOW IVP SCH (20:00)
[2020-08-23] MEDS: Atorvastatin Calcium 40 MG TAB PO SCH (20:04)
[2020-08-24] MEDS: Piperacillin/Tazobactam 3.375 GM in Sodium Chloride 0.9% 100 ML IVPB SCH ×4 (01:50→18:18)
[2020-08-24] MEDS: Enalaprilat Dihydrate 1.25 MG/ML VIAL SLOW IVP SCH ×4 (03:12→19:40)
[2020-08-24 03:39] LABS: #Basophils 0.1 thou/uL (0.0-0.2); #Eosinphils 0.1 thou/uL (0.0-0.7); #Lymphocytes 1.7 thou/uL (1.20-3.40); #Monocytes 0.7 thou/uL (0.11-0.59); #Neutrophils 4.5 thou/uL (1.40-6.50); %Basophils 0.8 % (0.0-1.0); %Eosinophils 1.1 % (0.0-10.0); %Monocytes 9.8 % (0.0-10.0); %Neutrophils 64.3 % (42.0-75.0); Hemoglobin 12.4 g/dL (12.0-16.0); Mean Corpuscular HGB CONC 33.4 g/dL (32.0-36.0); Mean Corpuscular Hemoglobin 29.6 pg (27.0-31.0); Mean Corpuscular Volume 88.8 fL (78.0-98.0); Mean Platelet Volume 7.6 fL (7.4-10.4); Platelet Count 245 thou/uL (130-400); RBC Distribution Width 13.2 % (11.5-14.5); Red Blood Cell (RBC) Count 4.19 mill/uL (4.20-5.40)
[2020-08-24 03:58] LABS: ALT (SGPT) Less than 7 U/L (8-55); AST (SGOT) 12 U/L (5-34); Albumin 3.5 g/dL (3.4-4.8); Alkaline Phosphatase 81 U/L (40-110); Anion Gap 16 mmol/L (10-20); BUN (Urea Nitrogen) 15 mg/dL (9.8-20.1); CRP (Inflammatory) 15.37 mg/dL (= or < 0.5); Calc. Creatinine Clearance 99 mL/min (70-130); Calcium 8.8 mg/dL (7.8-10.44); Carbon Dioxide 29 mmol/L (23-31); Chloride 98 mmol/L (98-107); Globulin 3.2 g/dL (2.4-3.5); Glucose 264 mg/dL (80-115); Magnesium 1.6 mg/dL (1.6-2.6); Phosphorus 3.6 mg/dL (2.3-4.7); Protein, Total 6.7 g/dL (5.8-8.1); Sodium 140 mmol/L (136-145)
[2020-08-24 04:05] LABS: Potassium 2.9 mmol/L (3.5-5.1)
[2020-08-24] MEDS ORDERED: Magnesium 2 GM/50 ML 2 GM in Premix Bag 1 BAG IVPB SCH (04:30)
[2020-08-24] MEDS ORDERED: Electrolyte Replacement Protocol FS PRN (04:30)
[2020-08-24] MEDS: Potassium Chloride 40 MEQ in Sodium Chloride 0.9% 250 ML 250 ML IVPB SCH ×2 (04:54→09:35)
[2020-08-24] MEDS: Vancomycin 1 GM in Premix Bag 1 BAG IVPB SCH (08:53)
[2020-08-24] MEDS: Amlodipine 10 MG TAB PO SCH (08:54)
[2020-08-24] MEDS: Cholecalciferol 1,000 UNITS (25 MCG) TAB PO SCH (08:54)
[2020-08-24] MEDS: Loratadine 10 MG TAB PO SCH (08:55)
[2020-08-24] MEDS: Lisinopril 10 MG TAB PO SCH (08:55)
[2020-08-24] MEDS: Magnesium Oxide 400 MG TAB PO SCH ×2 (08:55→20:29)
[2020-08-24] MEDS: Meloxicam 7.5 MG TAB PO SCH ×2 (08:55→20:27)
[2020-08-24] MEDS: Furosemide 20 MG TAB PO SCH (08:55)
[2020-08-24] MEDS ORDERED: Lantus 1000 UNITS/10 ML VIAL SC SCH ×3 (09:00→21:00)
[2020-08-24] MEDS: Fluticasone Propionate Nasal Spray 16 gm Bottle NASAL SCH (09:35)
[2020-08-24] MEDS: HumaLOG 300 UNITS/3 ML VIAL SC PRN ×3 (12:38→20:38)
[2020-08-24 17:34] LABS: Potassium 3.9 mmol/L (3.5-5.1)
[2020-08-24 17:37] LABS: Vancomycin, Trough 12.5 ug/mL
[2020-08-24] MEDS ORDERED: VANCOMYCIN 1.25 GM/250 ML BAG 1.25 GM in Premix Bag 1 BAG IVPB SCH (18:00)
[2020-08-24] MEDS: Sodium Chloride 0.9% 1,000 ML IV SCH (18:18)
[2020-08-24] MEDS: Senokot S 8.6-50 MG TAB PO SCH (20:28)
[2020-08-24] MEDS: Atorvastatin Calcium 40 MG TAB PO SCH (20:28)
[2020-08-24] MEDS: Polyethylene Glycol 3350 17 GM Packet PO SCH (20:29)
[2020-08-24] MEDS: guaiFENesin ER 600 MG TAB PO SCH (20:29)
[2020-08-24] MEDS ORDERED: Senokot S 8.6-50 MG TAB PO SCH (21:00)
[2020-08-25] MEDS: Enalaprilat Dihydrate 1.25 MG/ML VIAL SLOW IVP SCH ×4 (00:15→17:43)
[2020-08-25 03:59] LABS: #Eosinphils 0.3 thou/uL (0.0-0.7); #Lymphocytes 1.5 thou/uL (1.20-3.40); #Monocytes 0.6 thou/uL (0.11-0.59); #Neutrophils 3.5 thou/uL (1.40-6.50); %Basophils 0.6 % (0.0-1.0); %Eosinophils 5.3 % (0.0-10.0); %Lymphocytes 25.3 % (21.0-51.0); %Monocytes 10.6 % (0.0-10.0); %Neutrophils 58.2 % (42.0-75.0); Hemoglobin 11.9 g/dL (12.0-16.0); Mean Corpuscular HGB CONC 32.2 g/dL (32.0-36.0); Mean Corpuscular Hemoglobin 28.9 pg (27.0-31.0); Mean Corpuscular Volume 89.9 fL (78.0-98.0); Mean Platelet Volume 7.4 fL (7.4-10.4); Platelet Count 258 thou/uL (130-400); RBC Distribution Width 13.4 % (11.5-14.5)
[2020-08-25 04:15] LABS: ALT (SGPT) Less than 7 U/L (8-55); AST (SGOT) 8 U/L (5-34); Albumin 3.3 g/dL (3.4-4.8); Alkaline Phosphatase 68 U/L (40-110); Anion Gap 13 mmol/L (10-20); BUN (Urea Nitrogen) 20 mg/dL (9.8-20.1); Bilirubin, Total 0.7 mg/dL (0.2-1.2); Calc. Creatinine Clearance 108 mL/min (70-130); Calcium 8.6 mg/dL (7.8-10.44); Carbon Dioxide 27 mmol/L (23-31); Chloride 104 mmol/L (98-107); Globulin 2.9 g/dL (2.4-3.5); Glucose 158 mg/dL (80-115); Magnesium 2.2 mg/dL (1.6-2.6); Phosphorus 3.1 mg/dL (2.3-4.7); Potassium 3.3 mmol/L (3.5-5.1); Protein, Total 6.2 g/dL (5.8-8.1); Sodium 141 mmol/L (136-145)
[2020-08-25] MEDS ORDERED: Potassium Chloride 20 MEQ TAB PO SCH (05:45)
[2020-08-25] MEDS: HumaLOG 300 UNITS/3 ML VIAL SC PRN ×4 (06:07→20:56)
[2020-08-25] MEDS: Meloxicam 7.5 MG TAB PO SCH ×2 (09:12→20:53)
[2020-08-25] MEDS: Cholecalciferol 1,000 UNITS (25 MCG) TAB PO SCH (09:13)
[2020-08-25] MEDS: Lisinopril 10 MG TAB PO SCH (09:13)
[2020-08-25] MEDS: Senokot S 8.6-50 MG TAB PO SCH ×2 (09:13→20:50)
[2020-08-25] MEDS: Furosemide 20 MG TAB PO SCH (09:13)
[2020-08-25] MEDS: Fluticasone Propionate Nasal Spray 16 gm Bottle NASAL SCH (09:14)
[2020-08-25] MEDS: guaiFENesin ER 600 MG TAB PO SCH ×2 (09:14→20:49)
[2020-08-25] MEDS: Magnesium Oxide 400 MG TAB PO SCH ×2 (09:14→20:53)
[2020-08-25] MEDS: Amlodipine 10 MG TAB PO SCH (09:14)
[2020-08-25] MEDS: Loratadine 10 MG TAB PO SCH (09:14)
[2020-08-25] MEDS: Lantus 1000 UNITS/10 ML VIAL SC SCH ×2 (09:14→20:52)
[2020-08-25] MEDS ORDERED: DULoxetine 30 MG CAP PO SCH (10:45)
[2020-08-25] MEDS: Cephalexin 250 MG CAP PO SCH ×3 (11:00→23:37)
[2020-08-25] MEDS: HYDROcodone/Acetaminophen 10/325 mg Tablet PO PRN ×3 (13:32→23:37)
[2020-08-25] MEDS: Atorvastatin Calcium 40 MG TAB PO SCH (20:49)
[2020-08-25] MEDS: Artificial Tear Sol 15 ML BOT EA EYE PRN (20:53)
[2020-08-25] MEDS: Polyethylene Glycol 3350 17 GM Packet PO SCH (20:56)
[2020-08-25] MEDS ORDERED: Enalaprilat Dihydrate 1.25 MG/ML VIAL SLOW IVP PRN (23:03)
[2020-08-25] MEDS ORDERED: diphenhydrAMINE 25 MG CAP PO SCH (23:45)
[2020-08-26] MEDS: HYDROcodone/Acetaminophen 10/325 mg Tablet PO PRN ×5 (04:24→22:03)
[2020-08-26] MEDS: Cephalexin 250 MG CAP PO SCH ×4 (05:57→23:01)
[2020-08-26] MEDS: HumaLOG 300 UNITS/3 ML VIAL SC PRN ×3 (05:58→17:45)
[2020-08-26] MEDS: Furosemide 20 MG TAB PO SCH (08:57)
[2020-08-26] MEDS: guaiFENesin ER 600 MG TAB PO SCH ×2 (08:58→20:49)
[2020-08-26] MEDS: Amlodipine 10 MG TAB PO SCH (08:58)
[2020-08-26] MEDS: Cholecalciferol 1,000 UNITS (25 MCG) TAB PO SCH (08:58)
[2020-08-26] MEDS: Meloxicam 7.5 MG TAB PO SCH ×2 (08:59→20:50)
[2020-08-26] MEDS: Senokot S 8.6-50 MG TAB PO SCH ×2 (08:59→20:50)
[2020-08-26] MEDS: Lisinopril 10 MG TAB PO SCH (08:59)
[2020-08-26] MEDS: Magnesium Oxide 400 MG TAB PO SCH ×2 (09:00→20:50)
[2020-08-26] MEDS: Loratadine 10 MG TAB PO SCH (09:00)
[2020-08-26] MEDS: Lantus 1000 UNITS/10 ML VIAL SC SCH ×2 (09:00→20:49)
[2020-08-26] MEDS: Fluticasone Propionate Nasal Spray 16 gm Bottle NASAL SCH (09:00)
[2020-08-26] MEDS: DULoxetine 60 MG CAP PO SCH (09:00)
[2020-08-26] MEDS: diphenhydrAMINE 25 MG CAP PO PRN ×2 (11:38→20:50)
[2020-08-26] MEDS: hydrALAZINE 20 MG/ML VIAL SLOW IVP PRN ×2 (11:40→17:46)
[2020-08-26] MEDS: Artificial Tear Sol 15 ML BOT EA EYE PRN (13:56)
[2020-08-26] MEDS: Atorvastatin Calcium 40 MG TAB PO SCH (20:49)
[2020-08-26] MEDS: Polyethylene Glycol 3350 17 GM Packet PO SCH (20:50)
[2020-08-27] MEDS: HumaLOG 300 UNITS/3 ML VIAL SC PRN ×3 (05:24→17:52)
[2020-08-27] MEDS: diphenhydrAMINE 25 MG CAP PO PRN ×2 (05:24→13:02)
[2020-08-27] MEDS: Cephalexin 250 MG CAP PO SCH (05:24)
[2020-08-27] MEDS: Meloxicam 7.5 MG TAB PO SCH ×2 (10:04→20:59)
[2020-08-27] MEDS: Fluticasone Propionate Nasal Spray 16 gm Bottle NASAL SCH (10:04)
[2020-08-27] MEDS: Furosemide 20 MG TAB PO SCH (10:04)
[2020-08-27] MEDS: Lisinopril 10 MG TAB PO SCH (10:05)
[2020-08-27] MEDS: Senokot S 8.6-50 MG TAB PO SCH ×2 (10:05→20:59)
[2020-08-27] MEDS: Cholecalciferol 1,000 UNITS (25 MCG) TAB PO SCH (10:06)
[2020-08-27] MEDS: Loratadine 10 MG TAB PO SCH (10:06)
[2020-08-27] MEDS: guaiFENesin ER 600 MG TAB PO SCH ×2 (10:07→20:59)
[2020-08-27] MEDS: DULoxetine 60 MG CAP PO SCH (10:08)
[2020-08-27] MEDS: Magnesium Oxide 400 MG TAB PO SCH ×2 (10:08→20:59)
[2020-08-27] MEDS: Lantus 1000 UNITS/10 ML VIAL SC SCH ×2 (10:08→20:59)
[2020-08-27] MEDS: Amlodipine 10 MG TAB PO SCH (10:08)
[2020-08-27] MEDS: HYDROcodone/Acetaminophen 10/325 mg Tablet PO PRN (10:12)
[2020-08-27] MEDS: Clindamycin 150 MG CAP PO SCH ×3 (10:13→22:56)
[2020-08-27] MEDS: Polyethylene Glycol 3350 17 GM Packet PO SCH (20:59)
[2020-08-27] MEDS: Atorvastatin Calcium 40 MG TAB PO SCH (20:59)
[2020-08-28] MEDS: Clindamycin 150 MG CAP PO SCH ×3 (04:05→16:51)
[2020-08-28] MEDS: HumaLOG 300 UNITS/3 ML VIAL SC PRN ×2 (05:56→13:08)
[2020-08-28] MEDS: Senokot S 8.6-50 MG TAB PO SCH ×2 (07:55→19:55)
[2020-08-28] MEDS: Magnesium Oxide 400 MG TAB PO SCH ×2 (07:56→19:55)
[2020-08-28] MEDS: Meloxicam 7.5 MG TAB PO SCH ×2 (07:56→19:55)
[2020-08-28] MEDS: DULoxetine 60 MG CAP PO SCH (07:56)
[2020-08-28] MEDS: Lisinopril 10 MG TAB PO SCH (07:57)
[2020-08-28] MEDS: Furosemide 20 MG TAB PO SCH (07:57)
[2020-08-28] MEDS: Cholecalciferol 1,000 UNITS (25 MCG) TAB PO SCH (07:58)
[2020-08-28] MEDS: Lantus 1000 UNITS/10 ML VIAL SC SCH ×2 (07:58→19:56)
[2020-08-28] MEDS: Amlodipine 10 MG TAB PO SCH (07:58)
[2020-08-28] MEDS: Loratadine 10 MG TAB PO SCH (07:58)
[2020-08-28] MEDS: guaiFENesin ER 600 MG TAB PO SCH ×2 (07:58→19:55)
[2020-08-28] MEDS: Fluticasone Propionate Nasal Spray 16 gm Bottle NASAL SCH (08:04)
[2020-08-28] MEDS: Artificial Tear Sol 15 ML BOT EA EYE PRN ×2 (08:05→13:11)
[2020-08-28] MEDS: HYDROcodone/Acetaminophen 10/325 mg Tablet PO PRN (08:54)
[2020-08-28] MEDS: Polyethylene Glycol 3350 17 GM Packet PO SCH (19:56)
[2020-08-28] MEDS: Atorvastatin Calcium 40 MG TAB PO SCH (19:56)
[2020-08-28 20:19] VITALS: BP 182/73; TEMP 98.5
[2020-08-28] MEDS ORDERED: cloNIDine 0.1 MG TAB PO SCH (21:00)
== END 2020-08-28 20:59 | DRG 459 ==
LOC: SDC 05:37 → SURG A 11:34 → OBSVTOIN 08-22 06:28 → IMCU/EMU 08-23 18:51 → SURG A 08-25 12:49
PROVIDERS: ADMIT Neurological Surgery; ATTEND Neurological Surgery
PROC: 0SG00K1 Fusion of Lumbar Vertebral Joint with Nonautologous Tissue Substitute, Posterior Approach, Posterior Column, Open Approach (ICD-10-PCS; principal; 2020-08-21)
PROC: 0QP004Z Removal of Internal Fixation Device from Lumbar Vertebra, Open Approach (ICD-10-PCS; 2020-08-21)
PROC: 3E0U0GB Introduction of Recombinant Bone Morphogenetic Protein into Joints, Open Approach (ICD-10-PCS; 2020-08-21)
DX: T84.226A Displacement of internal fixation device of vertebrae, initial encounter (principal); G92 Toxic encephalopathy; J96.01 Acute respiratory failure with hypoxia; J96.02 Acute respiratory failure with hypercapnia; F05 Delirium due to known physiological condition; I50.32 Chronic diastolic (congestive) heart failure; Z20.822 Contact with and (suspected) exposure to COVID-19; Y83.1 Surgical operation with implant of artificial internal device as the cause of abnormal reaction of the patient, or of later complication, without mention of misadventure at the time of the procedure; I11.0 Hypertensive heart disease with heart failure; E78.5 Hyperlipidemia, unspecified; F41.9 Anxiety disorder, unspecified; F32.9 Major depressive disorder, single episode, unspecified; J30.9 Allergic rhinitis, unspecified; E11.9 Type 2 diabetes mellitus without complications; K21.9 Gastro-esophageal reflux disease without esophagitis; R59.0 Localized enlarged lymph nodes; Z96.653 Presence of artificial knee joint, bilateral; E87.6 Hypokalemia; E83.42 Hypomagnesemia; R33.9 Retention of urine, unspecified; E66.9 Obesity, unspecified; Z68.35 Body mass index [BMI] 35.0-35.9, adult; Z79.899 Other long term (current) drug therapy; Z79.51 Long term (current) use of inhaled steroids; Z79.4 Long term (current) use of insulin; Z79.1 Long term (current) use of non-steroidal anti-inflammatories (NSAID); Z78.1 Physical restraint status; Z90.710 Acquired absence of both cervix and uterus
CPT/HCPCS: 36415; 36416; 36600; 70450; 71045; 71275; 74018; 76000; 80048; 80053; 80202; 81001; 82805; 83605; 83735; 83880; 84100; 84145; 84484; 85025; 86140; 87040; 87086; 87635; 93306; 93970; 94640; 94760; C1713; G0378; J0360; J0690; J1815; J1940; J2060; J2250; J2270; J2358; J2405; J2543; J2704; J2765; J3010; J3370; J3475; J3480; J3490; J7050; J7620; Q0163; Q9967; U0003; U0005

== ENCOUNTER 2020-09-06 09:58 | Outpatient (CLI) | payer MEDICARE, MEDICAID | END 2020-09-06 09:59 | disposition home or self-care (01) | LOC: TBSIIMAG 09:58 | PROVIDERS: ATTEND Neurological Surgery | DX: M43.16 Spondylolisthesis, lumbar region (principal); M47.816 Spondylosis without myelopathy or radiculopathy, lumbar region; Z98.890 Other specified postprocedural states | CPT/HCPCS: 72100 ==